=== PATIENT | male | born 1935 | race Caucasian/White ===

== ENCOUNTER 2016-08-25 16:31 | Observation (INO) | payer OTHER, MEDICARE ==
--- NOTE | 2016-08-25 16:43 | CPEKG ---
Heart Rate: 83 RR Interval: 723 QRSD Interval: 100 QT Interval: 348 QTC Interval: 409 QRS [place]: -11 T Wave [place]: 40 EKG Severity - ABNORMAL ECG - EKG Impression: ATRIAL FIBRILLATION, V-RATE 73-97 Electronically Signed By: Audi Hannah 25-Aug-2016 22:13:05
[2016-08-25 16:53] LABS: % IMMATURE GRANULYOCYTES 0.4 % (0.0-1.1); ABSOLUTE IMMATURE GRANULOCYTES 0.03 10^3/uL (0.00-0.10); ADD DIFF? NO; ADD MORPH? NO; ADD SCAN? NO; ATYPICAL LYMPHOCYTE FLAG 50 (0-99); FRAGMENT RBC FLAG 0 (0-99); HEMATOCRIT 41.3 % (40.0-51.0); HEMOGLOBIN 14.2 g/dL (13.7-17.5); LEFT SHIFT FLG 0 (0-99); LIPEMIA HEMOLYSIS FLAG 90 (0-99); MEAN CELL HEMOGLOBIN CONCENTR. 34.4 g/dL (32.4-36.7); MEAN PLATELET VOLUME 9.8 fL (8.7-11.7); PLATELET CLUMPS FLAG 20 (0-99); PLATELET COUNT 191 10^3/uL (150-400); RED BLOOD CELL COUNT 4.44 10^6/uL (4.40-6.38); RED CELL DISTRIBUTION WIDTH 13.8 % (11.5-15.2)
[2016-08-25] MEDS ORDERED: ALTEPLASE 100 MG/100 ML VIAL IV ONE (16:59)
[2016-08-25 17:04] LABS: INR 1.09 (0.83-1.16)
[2016-08-25 17:05] LABS: APTT 32.3 SEC (23.0-38.0)
[2016-08-25 17:06] LABS: ANION GAP 10 mEq/L (8-16); CALCIUM 9.4 mg/dL (8.5-10.4); CARBON DIOXIDE 23 mEq/l (22-31); CHLORIDE 106 mEq/L (97-110); CREATININE 1.1 mg/dL (0.7-1.3); GLOMERULAR FILTRATION RATE > 60; GLUCOSE 87 mg/dL (70-100); POTASSIUM 4.8 mEq/L (3.5-5.2); SODIUM 139 mEq/L (134-144)
--- NOTE | 2016-08-25 17:06 | PDCONSULT ---
Extract Operator Note: [facility] Note Demographics Consult Type Acute Stroke First Name Shyam Last Name Noah Date of 1935 Age: 81 Gender Male Time of initial page (): 08/25/2016 16:42 Time of return call (): 08/25/2016 16:45 Time Ready to Initiate Telemed Consult (): 08/25/2016 16:46 HPI Additional History (Free Text): 81yo man who was LKN 2PM (when he took a nap), then awoke today with ataxia and double vision. He got up from a nap and was disoriented and off balance at 230PM. He states that he is feeling better. He denies double vision. He denies headaches. No focal weakness in arms or legs. Associated Symptoms: confusion [id number]-SH Past Medical History: Atrial Fibrillation, neuropathy, back pain Social History: non-smoker, non-drinker, no drugs Medications: aspirin Exam Vitals: vital signs reviewed SBP: 125 DBP: 85 NIHSS Time (): 08/25/2016 17:02 LOC 1a: 0 = Alert; keenly responsive LOC 1b: 0 = Answers both questions correctly LOC Commands: 0 = Performs both tasks correctly Best Gaze: 0 = Normal Visual: 0 = No visual loss Facial Palsy 0 = Normal symmetrical movements Motor Arm L: 0 = No drift; limb holds 90 (or 45) degrees for full 10 seconds Motor Arm R: 0 = No drift; limb holds 90 (or 45) degrees for full 10 seconds Motor Leg L: 0 = No drift; leg holds 30-degree position for full 5 seconds Motor Leg R: 0 = No drift; leg holds 30-degree position for full 5 seconds Limb Ataxia 0 = Absent Sensory: 0 = Normal; no sensory loss Best Language: 0 = No aphasia; normal Dysarthria: 0 = Normal Extinction + Inattention: 0 = No abnormality NIHSS: [address]: no bleed Assessment Assessment: TIA Plan/ please take as written orders Lytic/Intervention: NOT IV or IA candidate tPA Exclusion (< 3hr window) Mild or improving symptoms Target Blood Pressure: SBP < 220 Labs Comprehensive metabolic panel, HgbA1c, Lipid Panel, UDS Imaging CTA Head, CTA Neck, MRI brain without Diagnostic test echocardiogram without bubble Therapy/Eval NPO until cleared by swallow evaluation, PT/OT Medication aspirin 325mg per day VTE Prophylaxis SCD, Lovenox 40 mg subcutaneously q day Other LDL goal less than 70, permissive HTN, telemetry monitoring, I have discussed my recommendations with the referring provider Order Urgency Routine on admission Additional Recommendations: 1. ideally, would recommend anticoagulation with either NOAC or coumadin staff genetic counselor Disposition admit
[2016-08-25 17:18] LABS: TROPONIN I < 0.012 ng/mL (0-0.034)
[2016-08-25] MEDS ORDERED: DILTIAZEM 60 MG TAB PO SCH (21:00)
[2016-08-25] MEDS: GABAPENTIN 300 MG CAP PO SCH (21:06)
[2016-08-25] MEDS: ASPIRIN 325 MG TAB PO SCH (21:06)
--- NOTE | 2016-08-25 21:11 | PDGENHP ---
History and Physical - Chief Complaint acute ataxia - History of Present Illness primary care provider: [facility] HPI: 81-year-old male presents with acute ataxia characterized as difficulty standing and ambulating with associated confusion and diplopia. He was last seen normal at 2:00 p.m. and his onset of symptoms at 2:30 p.m.. The symptoms occurred at rest and patient was 1st discovered sleeping with his head on his chest by his . Upon awakening him, the patient reportedly attempted to stand and was unable to do so affectively. This is very unusual for him. He fell asleep watching golf. He does not usually fall asleep watching golf. Duration was approximately 15-20 minutes and he reports that he felt like symptoms completely resolved. He does report that he intermittently has double vision particularly when he is attempting to play tennis. He also reports that he has occasional tripping when he is playing tennis secondary to his neuropathy. He is currently in [place] for 2 weeks house sitting. Otherwise denies any chest pain, fever, chills, GI symptoms, headache. History Information - Allergies/Home Medication List Allergies/Adverse Reactions: No Known Allergies Allergy (Unverified 08/25/16 16:39) Home Medications: Aspirin [Aspirin 325 mg (*)] 325 mg PO DAILY 08/25/16 [Last Taken 08/25/16] Diltiazem [Cardizem 60 MG (*)] 30 mg PO DAILY@1200 08/25/16 [Last Taken 08/25/16 ] Diltiazem [Cardizem 60 MG (*)] 60 mg PO BID 08/25/16 [Last Taken 08/25/16 1.5TABS] Gabapentin [Neurontin] 600 mg PO TID 08/25/16 [Last Taken 08/25/16 2 DOSES] Lisinopril [Zestril 5 mg (*)] 5 mg PO DAILY 08/25/16 [Last Taken 08/25/16] I have personally reviewed and updated: family history, medical history, social history, surgical history - Past Medical History atrial fibrillation ( Has declined systemic anticoagulation in the past, diagnosed in May of 2016, had echocardiogram but no other cardiac risk stratification at that time) Additional medical history: neuropathy, back pain - Surgical History Reports: no pertinent surgical hx - Family History Additional family history: no family history of atrial fibrillation or coronary artery disease - Social History Smoking Status: Never smoked Alcohol Use: None Drug Use: None Additional social history: lives in [place], house sits in [place], physically active at baseline w/o any recent reduction in exercise tolerance Review of Systems ROS: 10pt was reviewed & negative except for what was stated in HPI & below Neurological: Reports: other ( ataxia, diplopia, confusion) Physical Exam Temp Pulse Resp BP Pulse Ox 36.4 C 83 18 109/84 H 98 08/25/16 18:37 08/25/16 18:37 08/25/16 18:37 08/25/16 18:37 08/25/16 18:37 Constitutional: no apparent distress, appears nourished, not in pain Eyes: PERRL, anicteric sclera, EOMI Ears, Nose, Mouth, Throat: moist mucous membranes, hearing normal, ears appear normal, no oral mucosal ulcers Cardiovascular: regular rate and rhythym, no murmur, rub, or gallop, No edema Respiratory: no respiratory distress, no rales or rhonchi, clear to auscultation Gastrointestinal: normoactive bowel sounds, soft, non-tender abdomen, no palpable masses Musculoskeletal: normal joint ROM, other ( normal bulk and tone) Neurologic: AAOx3, sensation intact bilaterally, CN II-XII Intact, No weakness Psychiatric: interacting appropriately, not anxious, not encephalopathic, thought process linear Lab Data & Imaging Review 08/25/16 16:40 08/25/16 16:40 WBC 8.02 10^3/uL (3.80-9.50) 08/25/16 16:40 RBC 4.44 10^6/uL (4.40-6.38) 08/25/16 16:40 Hgb 14.2 g/dL (13.7-17.5) 08/25/16 16:40 POC Hgb 14.6 gm/dL (14.5-17.3) 08/25/16 16:37 Hct 41.3 % (40.0-51.0) 08/25/16 16:40 POC Hct 43 % (42.8-50.6) 08/25/16 16:37 MCV 93.0 fL (81.5-99.8) 08/25/16 16:40 MCH 32.0 pg (27.9-34.1) 08/25/16 16:40 MCHC 34.4 g/dL (32.4-36.7) 08/25/16 16:40 RDW 13.8 % (11.5-15.2) 08/25/16 16:40 Plt Count 191 10^3/uL (150-400) 08/25/16 16:40 MPV 9.8 fL (8.7-11.7) 08/25/16 16:40 Neut % (Auto) 61.1 % (39.3-74.2) 08/25/16 16:40 Lymph % (Auto) 20.1 % (15.0-45.0) 08/25/16 16:40 [place] % (Auto) 12.0 % (4.5-13.0) 08/25/16 16:40 Eos % (Auto) 5.4 % (0.6-7.6) 08/25/16 16:40 Baso % (Auto) 1.0 % (0.3-1.7) 08/25/16 16:40 Nucleat RBC Rel Count 0.0 % (0.0-0.2) 08/25/16 16:40 Absolute Neuts (auto) 4.91 10^3/uL (1.70-6.50) 08/25/16 16:40 Absolute Lymphs (auto) 1.61 10^3/uL (1.00-3.00) 08/25/16 16:40 Absolute Monos (auto) 0.96 10^3/uL (0.30-0.80) H 08/25/16 16:40 Absolute Eos (auto) 0.43 10^3/uL (0.03-0.40) H 08/25/16 16:40 Absolute Basos (auto) 0.08 10^3/uL (0.02-0.10) 08/25/16 16:40 Absolute Nucleated RBC 0.00 10^3/uL (0-0.01) 08/25/16 16:40 Immature Gran % 0.4 % (0.0-1.1) 08/25/16 16:40 Immature Gran # 0.03 10^3/uL (0.00-0.10) 08/25/16 16:40 PT 14.0 SEC (12.0-15.0) 08/25/16 16:40 INR 1.09 (0.83-1.16) 08/25/16 16:40 APTT 32.3 SEC (23.0-38.0) 08/25/16 16:40 POC Sodium 141 mEq/L (134-144) 08/25/16 16:37 Sodium 139 mEq/L (134-144) 08/25/16 16:40 POC Potassium 4.5 mEq/L (3.3-5.0) 08/25/16 16:37 Potassium 4.8 mEq/L (3.5-5.2) 08/25/16 16:40 POC Chloride 103 mEq/L (96-108) 08/25/16 16:37 Chloride 106 mEq/L (97-110) 08/25/16 16:40 Carbon Dioxide 23 mEq/l (22-31) 08/25/16 16:40 Anion Gap 10 mEq/L (8-16) 08/25/16 16:40 POC BUN 24 mg/dL (7-23) H 08/25/16 16:37 BUN 22 mg/dL (7-23) 08/25/16 16:40 Creatinine 1.1 mg/dL (0.7-1.3) 08/25/16 16:40 POC Creatinine 1.3 mg/dL (0.8-1.5) 08/25/16 16:37 Estimated GFR > 60 08/25/16 16:40 Glucose 87 mg/dL (70-100) 08/25/16 16:40 POC Glucose 90 mg/dL (70-100) 08/25/16 16:37 Calcium 9.4 mg/dL (8.5-10.4) 08/25/16 16:40 Troponin I < 0.012 ng/mL (0-0.034) 08/25/16 16:40 Visualized and Interpreted Chest x-ray results: Yes Chest X-Ray results: no infiltrate Visualized and Interpreted EKG results: Yes EKG Interpretation: Positive for: other ( atrial fibrillation, Q-wave in lead 3 and AVF) Assessment & Plan Assessment: 81-year-old male presents with acute ataxia, confusion, diplopia, concerning for TIA in the setting of atrial fibrillation Plan: 1. Suspected TIA. Patient's constellation of symptoms certainly could be consistent with a TIA he was seen by [facility] did not recommend tPA given his resolution of symptoms -get MRI -get CT angio of head and neck -get lipid panel, hemoglobin A1c -given his underlying atrial fibrillation and possible TIA would recommend systemic anticoagulation, patient currently is declining but will reconsider tomorrow -I have discussed the possibility of a GLENDA with the patient to either confirm or deny whether left atrial thrombus could be cause of symptoms, keep him NPO overnight and have Neurology consult in the a.m. to discuss with patient whether this should be performed immediately as part of his risk stratification or can be scheduled as an outpatient -continue full-dose aspirin -order outside records including [place] [facility] [place] the degree of mitral valve pathology which the patient reports is present 2. Atrial fibrillation. Permanent, currently in AFib on telemetry, with rates ranging between 110 and 120, rapid AFib could be contributing cause to his symptoms and better rate control is indicated -made slight adjustment to his rather unusual dosing regiment, increased from 60 /30/60mg to 60/60/60mg -continue aspirin, at full dose, consider systemic anticoagulation as outlined above Diet. Cardiac Prophylaxis. SCDs Code status. Full Disposition. Anticipated discharge is 08/26/2016, pending further workup as outlined above. I have discussed patient's presentation with Dr. Hannah in the emergency department, we both agree the patient is appropriate for the EACU.
[2016-08-25] MEDS ORDERED: IOPAMIDOL (ISOVUE 370) 100 ML BTL IV ONE (21:39)
--- NOTE | 2016-08-25 22:08 | EDPHY ---
H & P Stated Complaint: blurred vision/ataxia/disorientation Time Seen by Provider: 08/25/16 16:37 HPI/ROS: CHIEF COMPLAINT: Diplopia, ataxia HISTORY OF PRESENT ILLNESS: The patient presents to the ED with complaints of diplopia and ataxia. The patient's symptoms began upon waking up from a nap. He was last seen in his normal state of health approximately 2 o'clock. The patient has a history of atrial fibrillation. He is on aspirin and not anticoagulated. He denies headache, recent fall, trauma, fever, neck pain or additional medical complaints. The patient specifically denies chest pain or shortness of breath. Patient states his symptoms have been improving during his transportation to the hospital. His ataxia has not entirely resolved. His diplopia has resolved. REVIEW OF SYSTEMS: A comprehensive 10 point review of systems is otherwise negative aside from elements mentioned in the history of present illness. Source: Patient Exam Limitations: No limitations - Personal History Current Tetanus/Diphtheria Vaccine: Yes - Medical/Surgical History Hx Asthma: No Hx Chronic Respiratory Disease: No Hx Diabetes: No Hx Cardiac Disease: Yes Hx Renal Disease: No Hx Cirrhosis: No Hx Alcoholism: No Hx HIV/AIDS: No Hx Splenectomy or Spleen Trauma: No Other PMH: a fib/mitral valve prolapse, backsurgery - Social History Smoking Status: Never smoked - Physical Exam Exam: General Appearance: Alert, no distress Eyes: Pupils equal and round no pallor or injection ENT, Mouth: Mucous membranes moist Respiratory: There are no retractions, lungs are clear to auscultation Cardiovascular: Regular rate and rhythm Gastrointestinal: Abdomen is soft and nontender, no masses, bowel sounds normal Neurological: Alert and oriented x4, 5/5 strength noted all 4 extremities, cranial nerves 2-12 intact, patient does have slight dysmetria with finger to nose, patient was observed to have mild gait ataxia Skin: Warm and dry, no rashes Musculoskeletal: Neck is supple nontender Extremities: symmetrical, full range of motion Constitutional: Initial Vital Signs Temperature (C) 36.4 C 08/25/16 16:40 Heart Rate 91 08/25/16 16:40 Respiratory Rate 20 08/25/16 16:40 Blood Pressure 121/90 H 08/25/16 16:40 O2 Sat (%) 96 08/25/16 16:40 O2 Delivery Mode Nasal Cannula O2 (L/minute) 2 Allergies/Adverse Reactions: No Known Allergies Allergy (Unverified 08/25/16 16:39) Home Medications: Medication Instructions Recorded Aspirin [Aspirin 325 mg (*)] 325 mg PO DAILY 08/25/16 Diltiazem [Cardizem 60 MG (*)] 30 mg PO DAILY@1200 08/25/16 Diltiazem [Cardizem 60 MG (*)] 60 mg PO BID 08/25/16 Gabapentin [Neurontin] 600 mg PO TID 08/25/16 Lisinopril [Zestril 5 mg (*)] 5 mg PO DAILY 08/25/16 Medical Decision Making - Diagnostics EKG Interpretation: EKG: Complete interpretation has been separately recorded in the [facility] archive. Summary impression: Atrial fibrillation, rate 83 Imaging Results: Imaging Impressions Chest X-Ray 08/25/16 16:35 Impression: Nothing acute identified. Head CT 08/25/16 16:35 Impression: 1. Mild atrophy. 2. No acute hemorrhage, hydrocephalus, or mass effect. 3. Cerebrovascular atherosclerosis. 4. No definite acute infarct. 5. Mild microvascular ischemic gliosis. 6. Consider MRI of the brain without and with contrast enhancement, if there is continued clinical concern. Findings and recommendations discussed with Emergency Department physician, Audi Hannah at 1653 hour, 08/25/2016. Final report concurs with initial preliminary interpretation. ED Course/Re-evaluation: The patient presents to the ED with acute ataxia diplopia. The patient was made a stroke alert by myself. Patient was seen in consultation by the tele Neurology service. Dr. Bingham his recommended that the patient be admitted to the hospital for TIA. He currently finds the patient to be markedly improved with an NIH stroke scale is 0. The patient was noted to have a well controlled blood pressure in the ED. The patient does take a daily aspirin. The consultation was made with Dr. Her from the hospitalist service who will admit the patient this evening. Differential Diagnosis: Differential diagnosis considered includes stroke, TIA, intracranial hemorrhage , carotid artery dissection, migraine variant Critical Care Time: Critical care time exclusive of procedures and exclusive of the PA's time was 35 minutes, performed by myself, Audi Hannah MD. The patient presents to the ED with an acute neuro deficit. The patient required emergent consultation by Neurology and a stat CT scan of his head. The patient was ultimately deemed not to be a candidate for tPA. The patient will require admission to a monitored bed for close observation this evening. - Data Points Laboratory Results: Laboratory Results 08/25/16 16:40 08/25/16 16:40 08/25/16 08/25/16 08/25/16 16:40 16:40 16:40 WBC 8.02 10^3/uL 10^3/uL (3.80-9.50) RBC 4.44 10^6/uL 10^6/uL (4.40-6.38) Hgb 14.2 g/dL g/dL (13.7-17.5) POC Hgb Hct 41.3 % % (40.0-51.0) POC Hct MCV 93.0 fL fL (81.5-99.8) MCH 32.0 pg pg (27.9-34.1) MCHC 34.4 g/dL g/dL (32.4-36.7) RDW 13.8 % % (11.5-15.2) Plt Count 191 10^3/uL 10^3/uL (150-400) MPV 9.8 fL fL (8.7-11.7) Neut % (Auto) 61.1 % % (39.3-74.2) Lymph % (Auto) 20.1 % % (15.0-45.0) [place] % (Auto) 12.0 % % (4.5-13.0) Eos % (Auto) 5.4 % % (0.6-7.6) Baso % (Auto) 1.0 % % (0.3-1.7) Nucleat RBC Rel Count 0.0 % % (0.0-0.2) Absolute Neuts (auto) 4.91 10^3/uL 10^3/uL (1.70-6.50) Absolute Lymphs (auto) 1.61 10^3/uL 10^3/uL (1.00-3.00) Absolute Monos (auto) 0.96 10^3/uL H 10^3/uL (0.30-0.80) Absolute Eos (auto) 0.43 10^3/uL H 10^3/uL (0.03-0.40) Absolute Basos (auto) 0.08 10^3/uL 10^3/uL (0.02-0.10) Absolute Nucleated RBC 0.00 10^3/uL 10^3/uL (0-0.01) Immature Gran % 0.4 % % (0.0-1.1) Immature Gran # 0.03 10^3/uL 10^3/uL (0.00-0.10) PT 14.0 SEC SEC (12.0-15.0) INR 1.09 (0.83-1.16) APTT 32.3 SEC SEC (23.0-38.0) POC Sodium Sodium 139 mEq/L mEq/L (134-144) POC Potassium Potassium 4.8 mEq/L mEq/L (3.5-5.2) POC Chloride Chloride 106 mEq/L mEq/L (97-110) Carbon Dioxide 23 mEq/l mEq/l (22-31) Anion Gap 10 mEq/L mEq/L (8-16) POC BUN BUN 22 mg/dL mg/dL (7-23) Creatinine 1.1 mg/dL mg/dL (0.7-1.3) POC Creatinine Estimated GFR > 60 Glucose 87 mg/dL mg/dL (70-100) POC Glucose Calcium 9.4 mg/dL mg/dL (8.5-10.4) Troponin I < 0.012 ng/mL ng/mL (0-0.034) 08/25/16 16:37 WBC RBC Hgb POC Hgb 14.6 gm/dL gm/dL (14.5-17.3) Hct POC Hct 43 % % (42.8-50.6) MCV MCH MCHC RDW Plt Count MPV Neut % (Auto) Lymph % (Auto) [place] % (Auto) Eos % (Auto) Baso % (Auto) Nucleat RBC Rel Count Absolute Neuts (auto) Absolute Lymphs (auto) Absolute Monos (auto) Absolute Eos (auto) Absolute Basos (auto) Absolute Nucleated RBC Immature Gran % Immature Gran # PT INR APTT POC Sodium 141 mEq/L mEq/L (134-144) Sodium POC Potassium 4.5 mEq/L mEq/L (3.3-5.0) Potassium POC Chloride 103 mEq/L mEq/L (96-108) Chloride Carbon Dioxide Anion Gap POC BUN 24 mg/dL H mg/dL (7-23) BUN Creatinine POC Creatinine 1.3 mg/dL mg/dL (0.8-1.5) Estimated GFR Glucose POC Glucose 90 mg/dL mg/dL (70-100) Calcium Troponin I Medications Given: Discontinued Medications Diltiazem HCl (Cardizem Immediate Release) 60 mg PO BID GLORIA Stop: 02/21/17 20:59 Last Admin: 08/25/16 21:06 Dose: 60 mg Point of Care Test Results: 08/25/16 16:37 POC Sodium 141 POC Potassium 4.5 POC Chloride 103 POC BUN 24 H POC Creatinine 1.3 POC Glucose 90 Departure - Departure Disposition: [facility] Inpatient Acute Clinical Impression: Transient cerebral ischemia, Atrial fibrillation Condition: Fair
[2016-08-26 05:51] LABS: ALANINE AMINOTRANSFERASE 24 IU/L (21-72); ALBUMIN 3.4 g/dL (3.5-5.0); ALKALINE PHOSPHATASE 73 IU/L (38-126); ANION GAP 9 mEq/L (8-16); ASPARTATE AMINOTRANSFERASE 21 IU/L (17-59); BILIRUBIN,TOTAL 0.6 mg/dL (0.1-1.4); CALCIUM 8.5 mg/dL (8.5-10.4); CARBON DIOXIDE 21 mEq/l (22-31); CHLORIDE 110 mEq/L (97-110); CHOLESTEROL 144 mg/dL (140-220); CHOLESTEROL/HDL RATIO 2.82 RATIO (1.00-4.97); CREATININE 0.9 mg/dL (0.7-1.3); GLOMERULAR FILTRATION RATE > 60; GLUCOSE 82 mg/dL (70-100); HIGH DENSITY LIPOPROTEIN 51 mg/dL (40-65); LDL/HDL RATIO 1.59 RATIO (1.00-3.64); LOW DENSITY LIPOPROTEIN 81 mg/dL (80-100); NON-HIGH DENSITY LIPOPROTEIN 93 mg/dL (90-129); POTASSIUM 4.1 mEq/L (3.5-5.2); SODIUM 140 mEq/L (134-144); TOTAL PROTEIN 5.6 g/dL (6.3-8.2); TRIGLYCERIDE 64 mg/dL (40-150); VERY LOW DENSITY LIPOPROTEINS 12 mg/dL (8-25)
--- NOTE | 2016-08-26 08:26 | GCON ---
[f rep st] CONSULTATION REFERRING PHYSICIAN: Oscar Her MD REASON FOR CONSULTATION: The patient is an 81-year-old gentleman whom I am asked to see in neurolog ic consultation regarding an acute neurologic event which occurred yesterday. The patient says he i s visiting from [place], where he is house sitting, and had been watching television at 2:30 p.m. a nd developed acute symptoms. He was noted to be normal at 2:00 p.m. His noticed that when she awoke him he was trying to stand and could not do so very well. He had fallen asleep watching some golf. It probably lasted 15-20 minutes, when he also had some double vision. He did not have ches t pain, palpitations, or shortness of breath. He did not have focal numbness or weakness. He has n ever had this specific problem before, although he has had some tendency to trip at times. He has a history of neuropathy and prior lumbar spine surgery 2007. He does stay active. He has known atri al fibrillation, and has been informed about recommendations for anticoagulation, but simply wants t o take aspirin, for concern about the potential bleeding complications. 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 There have been no clear-cut alleviating or exacerbating factors for symptoms. He now feels complet donal back to himself. REVIEW OF SYSTEMS: Otherwise, a 10-point review of systems was completed and unremarkable except fo r that noted above. PAST MEDICAL HISTORY: As outlined above, to include the atrial fibrillation and the lumbar spine bradford rgery and peripheral neuropathy. FAMILY HISTORY: No family history of stroke or coronary disease. SOCIAL HISTORY: No history of smoking or drug use. No alcohol. He is retired. MEDICATIONS ON ADMISSION: Lisinopril, gabapentin, diltiazem, and aspirin. Continue on aspirin, dil tiazem, gabapentin, and lisinopril. ALLERGIES TO MEDICATION: No known drug allergies. PHYSICAL EXAMINATION: VITAL SIGNS: The blood pressure is 124/88, pulse of 92 with some variation w ith his atrial fibrillation. Temperature 36.6. Respirations 20. GENERAL: He is a thin, well-deve loped man in no acute distress. Eyes are clear. NECK: Supple with no bruits or masses. CARDIAC: I rregular rhythm. No murmur. EXTREMITIES: No cyanosis or edema. GENERAL: He is awake, alert and attentive with clear fluent speech and normal cognition. He is oriented to person, place, and time. He has good recent and remote memory, as well as normal concentration and attention and general fu nd of knowledge. HEENT: Pupils 4 mm and reactive. Unremarkable fundi. No visual field loss. Ext raocular movements are intact. Normal facial sensation and strength. Palate elevates symmetrically . Tongue protrudes midline. Hearing is intact. No weakness of head turning or shoulder shrug. NE UROLOGIC: Normal muscle bulk and tone, 5/5 strength. Sensation is preserved for temperature and li ght touch in the upper extremities. He has some distal decreased sensation in the lower extremities . Reflexes 1+. He moves slowly and mildly unsteady, but can walk independently and not grossly hemant xic. LAB: CBC is unremarkable. Lipid panel shows the LDL cholesterol of 81. Otherwise unremarkable fatmata ctrolytes. Normal INR. The head CT obtained yesterday in the emergency department shows no signifi cant abnormalities. The brain MRI did not show any acute stroke and mild changes consistent with ag e related phenomena. CT angiogram does not show any significant stenoses. IMPRESSION: The patient has experienced a probable transient ischemic attack, with the main risk fa ctor being atrial fibrillation. He understands he is at risk for stroke and we reviewed all of the treatment therapies. He understands that anticoagulation would provide better prevention, but he on ly wants to take aspirin and he is very clear on that. He does not want to have another echocardiog johanna, which he had a few months ago in [place], and understands that we might find something, but I feel comfortable not pursuing that now based on the patient's feedback. He does not want to add any other medications. He has relatively good LDL and there would be a clinical indication for a stati n in the setting of a TIA, but he would prefer not adding more medications at this point. Given the fact that he now has an NIH stroke scale of 0 and does not want to pursue any more diagnostic studi es or changes in therapy, he may be discharged and follow up as needed, and can follow up when he ge ts back to [place] for ongoing care with his providers in that area. /[id number]
[2016-08-26] MEDS: GABAPENTIN 300 MG CAP PO SCH (08:49)
[2016-08-26] MEDS: ASPIRIN 325 MG TAB PO SCH (08:49)
[2016-08-26] MEDS ORDERED: DILTIAZEM 60 MG TAB PO SCH (09:00)
[2016-08-26] MEDS ORDERED: LISINOPRIL 5 MG TAB PO SCH (09:00)
[2016-08-26] MEDS ORDERED: DILTIAZEM 30 MG TAB PO SCH (12:00)
[2016-08-26 12:48] VITALS: BP 122/76; PULSE 90; RESP 16; TEMP 97.4; O2SAT 96
[2016-08-28 01:39] LABS: HEMOGLOBIN A1C 6.1 % (4.0-6.0)
== END 2016-08-26 13:14 | disposition home or self-care (01) ==
LOC: F1N 18:27
PROVIDERS: ADMIT Internal Medicine; ATTEND Internal Medicine
DX: G45.9 Transient cerebral ischemic attack, unspecified (principal); I48.91 Unspecified atrial fibrillation; G62.9 Polyneuropathy, unspecified; Z79.82 Long term (current) use of aspirin
CPT/HCPCS: 70450; 70496; 70498; 70551; 71010; 93005; G0378; Q9967; 82947-QW; J2997